=== PATIENT | male | born 1955 | race Caucasian/White ===

== ENCOUNTER 2024-05-04 07:01 | Day surgery (SDC) | payer MEDICARE, OTHER ==
[2024-05-04] MEDS ORDERED: SODIUM CHLORIDE 0.9% 1,000 ML ONE (07:07)
[2024-05-04] MEDS ORDERED: MIDAZOLAM HCL 2 MG/2 ML VIAL ONE (08:29)
[2024-05-04] MEDS ORDERED: FentaNYL CITRATE PF 100 MCG/2 ML VIAL ONE (08:29)
[2024-05-04 09:06] LABS: GLUCOMETER DEV NAME(LOC) SDS.; GLUCOSE,POINT OF CARE 105 MG/DL (70-110)
[2024-05-04 09:34] VITALS: PULSE 72; RESP 20; O2SAT 100
[2024-05-04] MEDS ORDERED: MethylPREDNISolone SOD SUCC 125 MG/2 ML VIAL ONE (09:44)
[2024-05-04] MEDS: SODIUM CHLORIDE 0.9% 1,000 ML IV ONE (10:13)
[2024-05-04] MEDS: MethylPREDNISolone SOD SUCC 125 MG/2 ML VIAL IVP ONE (10:17)
[2024-05-04] MEDS ORDERED: LIDOCAINE 2% 11 ML JELLY TP ONE (12:00)
[2024-05-04] MEDS ORDERED: LEVALBUTEROL 1.25 MG/0.5 ML NEB SOLUTION NEB ONE (12:00)
[2024-05-04] MEDS ORDERED: BENZOCAINE 20% 50 MCG/SPRAY 57 GM TP ONE (12:00)
[2024-05-04] MEDS ORDERED: LIDOCAINE 4% 50 ML SOLUTION TP ONE (12:00)
== END 2024-05-04 12:30 | disposition home or self-care (01) ==
LOC: SURGERY 07:01
PROVIDERS: ATTEND Internal Medicine Critical Care Medicine
DX: R05.3 Chronic cough (principal); R06.1 Stridor; R91.8 Other nonspecific abnormal finding of lung field; J84.10 Pulmonary fibrosis, unspecified; J98.8 Other specified respiratory disorders; R04.2 Hemoptysis; J98.09 Other diseases of bronchus, not elsewhere classified; I10 Essential (primary) hypertension; Z98.818 Other dental procedure status
CPT/HCPCS: 31623; 82962; 87206; 87101; 87220; 87070; 88108; 31624; 71045; 87015; J3010; J2250; J2919; J7030; Z7610

== ENCOUNTER 2025-01-02 06:58 | Day surgery (SDC) | payer MEDICARE, OTHER ==
[2025-01-02] MEDS: SODIUM CHLORIDE 0.9% 1,000 ML IV ONE (07:48)
[2025-01-02] MEDS ORDERED: FentaNYL CITRATE PF 100 MCG/2 ML VIAL ONE (08:03)
[2025-01-02] MEDS ORDERED: MIDAZOLAM HCL 2 MG/2 ML VIAL ONE (08:04)
[2025-01-02 10:00] VITALS: PULSE 64; RESP 18; O2SAT 98
[2025-01-02] MEDS ORDERED: MethylPREDNISolone SOD SUCC 125 MG/2 ML VIAL ONE (10:45)
[2025-01-02] MEDS: MethylPREDNISolone SOD SUCC 125 MG/2 ML VIAL IVP ONE (10:46)
== END 2025-01-02 13:45 | disposition home or self-care (01) ==
LOC: SURGERY 06:58
PROVIDERS: ATTEND Internal Medicine Critical Care Medicine
DX: R05.3 Chronic cough (principal); J38.4 Edema of larynx; B37.0 Candidal stomatitis; I10 Essential (primary) hypertension; Z86.73 Personal history of transient ischemic attack (TIA), and cerebral infarction without residual deficits; E11.9 Type 2 diabetes mellitus without complications
CPT/HCPCS: 31623; 87206; 87101; 87220; 87070; 88108; 31624; 71045; 87015; J3010; J2250; J2919